=== PATIENT | female | born 1995 | race Two or more races ===

== ENCOUNTER 2020-08-13 23:28 | Inpatient (IN) ==
[2020-08-13] MEDS ORDERED: BUTORPHANOL 2 MG/ML VIAL IV PRN (23:50)
[2020-08-13] MEDS ORDERED: MEPERIDINE 50 MG/1 ML VIAL IV PRN (23:50)
[2020-08-13] MEDS ORDERED: ONDANSETRON 4 MG/2 ML VIAL IV PRN (23:50)
[2020-08-13] MEDS ORDERED: LACTATED RINGERS 500 ML IV PRN (23:50)
[2020-08-14] MEDS: LACTATED RINGERS 1,000 ML IV SCH ×2 (00:41→13:32)
[2020-08-14 01:20] LABS: Alanine Aminotransferase 13 U/L (13-56); Albumin 2.8 G/DL (3.4-5.0); Alkaline Phosphatase 300 U/L (45-117); Aspartate Amino Transferase 18 U/L (0-37); Bilirubin,Total < 0.39 MG/DL (0.2-1.0); Blood Urea Nitrogen 6 MG/DL (7-18); Calcium 8.4 MG/DL (8.5-10.1); Carbon Dioxide 22 MMOL/L (21-32); Estimated Glom Filtration Rate 102 ML/MIN; Glucose 100 MG/DL (74-106); Osmolality,Calculated 270.8 MOS/KG (273-304); Potassium 3.8 MMOL/L (3.5-5.1); Sodium 137 MMOL/L (136-145); Total Protein 6.7 G/DL (6.4-8.2)
[2020-08-14 01:58] LABS: Basophils % 0.6 % (0.0-0.8); Eosinophils # 0.1 10*3/uL (0.0-0.87); Eosinophils % 0.9 % (0.00-10.9); Immature Granulocytes % 0.8 %; Immature Granulocytes Absolute 0.05 #; Lymphocytes # 2.4 10*3/uL (1.4-4.0); Lymphocytes % 36.8 % (21.3-54.2); Mean Corpuscular HGB Conc 32.3 GM/DL (32-36); Mean Corpuscular Volume 84.7 FL (87-102); Mean Platelet Volume 11.1 FL (9.6-12.0); Monocytes % 6.9 % (1.7-12.7); Platelet Count 258 T/CUMM (130-400); Red Blood Count 3.66 MC/CUMM (3.8-5.5); Red Cell Distribution Width 13.8 % (9.3-17.3); White Blood Count 6.4 T/CUMM (4-12)
[2020-08-14 03:32] LABS: Bilirubin,Urine Negative (Negative); Blood, Urine Negative (Negative); Calcium Oxalate Crystals,Urine Occasional /HPF (Few); Glucose,Urine (UA) Negative (Negative); Ketones,Urine Negative (Negative); Mucus,Urine Few /LPF (Occasional); Nitrite,Urine Negative (Negative); Protein,Urine 30 MG/DL; RBC,Urine 11 /HPF (0-4); Squamous Epithelial Cell,Urine Occasional /HPF (0-10); Urine Appearance Slightly Hazy (Clear); Urine Color Amber (Yellow); Urine Specific Gravity 1.027 (1.001-1.035)
[2020-08-14] MEDS: OXYTOCIN/LR 20 UNIT/1,000 ML BAG IV SCH ×2 (09:51→15:30)
[2020-08-14] MEDS ORDERED: OXYTOCIN/LR 20 UNIT/1,000 ML BAG IV ONE (14:07)
[2020-08-14] MEDS ORDERED: METHYLERGONOVINE 0.2 MG/1 ML AMP ONE (14:07)
[2020-08-14] MEDS ORDERED: miSOPROStoL 200 MCG TABLET ONE (14:07)
[2020-08-14] MEDS ORDERED: TRANEXAMIC ACID 1,000 MG/10 ML VIAL ONE (14:07)
[2020-08-14] MEDS ORDERED: CARBOPROST TROMETHAMINE 250 MCG/ML AMP IM ONE (14:08)
[2020-08-14] MEDS ORDERED: LIDOCAINE 2% 20 ML VIAL ONE (14:08)
[2020-08-14] MEDS ORDERED: SODIUM CHLORIDE 0.9% 0 ML IV ONE (14:09)
[2020-08-14 14:37] LABS: Cord Arterial Blood HCO3 23.5 MMOL/L
[2020-08-14 14:40] LABS: Cord Venous Blood HCO3 19.7 MMOL/L; Cord Venous Blood PCO2 40.3 MMHG; Cord Venous Blood PO2 27.6 MMHG
[2020-08-14] MEDS ORDERED: ONDANSETRON 4 MG/2 ML VIAL IV PRN (14:51)
[2020-08-14] MEDS ORDERED: MAGNESIUM HYDROXIDE SUSP 30 ML UDCUP PO PRN (14:51)
[2020-08-14] MEDS ORDERED: ACETAMINOPHEN 500 MG TABLET PO PRN (14:51)
[2020-08-14] MEDS ORDERED: BISACODYL 10 MG SUPP RECTAL PRN (14:51)
[2020-08-14] MEDS ORDERED: LACTATED RINGERS 1,000 ML IV SCH (15:00)
[2020-08-14] MEDS: IBUPROFEN 800 MG TABLET PO PRN (17:19)
[2020-08-14] MEDS: DOCUSATE SODIUM 100 MG CAPSULE PO SCH (21:36)
[2020-08-15 05:22] LABS: Basophils # 0.1 10*3/uL (0.0-0.2); Basophils % 0.4 % (0.0-0.8); Eosinophils # 0.1 10*3/uL (0.0-0.87); Eosinophils % 0.7 % (0.00-10.9); Hematocrit 29.4 VOL% (35.7-47.0); Hemoglobin 9.4 GM/DL (12.0-16.0); Immature Granulocytes % 0.5 %; Immature Granulocytes Absolute 0.06 #; Lymphocytes % 24.7 % (21.3-54.2); Mean Corpuscular Volume 85.7 FL (87-102); Mean Platelet Volume 10.8 FL (9.6-12.0); Monocytes % 5.4 % (1.7-12.7); Neutrophils % 68.3 % (38.7-73.9); Platelet Count 245 T/CUMM (130-400); Red Blood Count 3.43 MC/CUMM (3.8-5.5); Red Cell Distribution Width 14.3 % (9.3-17.3)
[2020-08-15] MEDS: DOCUSATE SODIUM 100 MG CAPSULE PO SCH ×2 (09:59→20:33)
[2020-08-15] MEDS: MULTIVITAMIN (PRENATAL) TABLET PO SCH (09:59)
[2020-08-15] MEDS: IBUPROFEN 800 MG TABLET PO PRN (14:21)
[2020-08-16] MEDS: IBUPROFEN 800 MG TABLET PO PRN (03:55)
[2020-08-16 09:18] VITALS: BP 101/57
[2020-08-16] MEDS: DOCUSATE SODIUM 100 MG CAPSULE PO SCH (10:27)
[2020-08-16] MEDS: MULTIVITAMIN (PRENATAL) TABLET PO SCH (10:27)
== END 2020-08-16 11:51 | disposition home or self-care (01) | DRG 807 ==
LOC: N.LD 23:28 → N.OB 08-14 17:12
PROVIDERS: ADMIT Obstetrics & Gynecology; ATTEND Nurse Practitioner